=== PATIENT | female | born 2000 | race Caucasian/White ===

== ENCOUNTER 2022-07-01 15:51 | Emergency (ER) | payer BC ==
[~2022-07-01] VITALS: Ht 167.6 cm; Wt 100.0 kg
[~2022-07-01 15:51] MED LIST: NO HOME MEDICATIONS
[2022-07-01 15:54] VITALS: TEMP 97.4
[2022-07-01 17:30] VITALS: BP 129/78; PULSE 80
== END 2022-07-01 17:45 | disposition home or self-care (01) ==
LOC: COL.ER 15:51
DX: K21.9 Gastro-esophageal reflux disease without esophagitis (principal); F32.A Depression, unspecified; Z79.899 Other long term (current) drug therapy